=== PATIENT | female | born 1945 | race Caucasian/White ===

== ENCOUNTER 2024-05-07 15:41 | Emergency (ER) | payer MEDICARE, MEDICAID ==
[~2024-05-07] VITALS: Ht 152.4 cm; Wt 59.0 kg
[~2024-05-07 15:41] MED LIST: FLUO10CA25 PO; TRAM50TA3 PO
[2024-05-07 15:47] VITALS: BP 135/63; PULSE 81; TEMP 98.3; O2SAT 97
[2024-05-07] MEDS ORDERED: HYDR-4001 MT (17:06)
[2024-05-07] MEDS: HYDROCODONE/ACETAMINOPHEN 5/325MG TABLET PO STA (17:20)
[2024-05-07 17:23] VITALS: RESP 17
== END 2024-05-07 17:30 | disposition home or self-care (01) ==
LOC: ER 15:41
DX: S82.001A Unspecified fracture of right patella, initial encounter for closed fracture (principal); F32.A Depression, unspecified; Z98.890 Other specified postprocedural states; Z96.651 Presence of right artificial knee joint; W10.9XXA Fall (on) (from) unspecified stairs and steps, initial encounter; X58.XXXA Exposure to other specified factors, initial encounter; Y93.89 Activity, other specified; Y92.89 Other specified places as the place of occurrence of the external cause; Y99.8 Other external cause status
CPT/HCPCS: 73560; 99283

== ENCOUNTER 2024-06-28 12:32 | Emergency (ER) | payer MEDICARE, MEDICAID ==
[~2024-06-28] VITALS: Ht 152.4 cm; Wt 61.0 kg
[~2024-06-28 12:32] MED LIST changes: +HYDR-4001 MT
[2024-06-28 12:39] VITALS: BP 167/73; PULSE 111; RESP 16; TEMP 98.6; O2SAT 98
== END 2024-06-28 13:03 | disposition left against medical advice (07) ==
LOC: ER 12:32
DX: R07.9 Chest pain, unspecified (principal); Z53.21 Procedure and treatment not carried out due to patient leaving prior to being seen by health care provider
CPT/HCPCS: 93005

== ENCOUNTER 2025-02-23 11:56 | Emergency (ER) | payer MEDICARE, MEDICAID ==
[~2025-02-23] VITALS: Ht 157.5 cm; Wt 65.0 kg
[2025-02-23 11:58] VITALS: O2SAT 100
[2025-02-23] MEDS: MORPHINE SULFATE 4 MG/ML INJ (FOR IV/IM USE) IV ONE (12:30)
[2025-02-23 13:18] LABS: BASOPHILS % 0.4 % (0.0-2.0); EOSINOPHILS % 1.1 % (0.0-5.0); HEMATOCRIT. 34.7 % (36.0-48.0); HEMOGLOBIN. 11.9 g/dL (12.0-16.0); LYMPHOCYTES % 24.3 % (20.0-50.0); MEAN PLATELET VOLUME 8.8 fl (7.4-10.4); MONOCYTES % 8.2 % (2.0-8.0); NEUTROPHILS % 66.0 % (40.0-76.0); PLATELET 288 x1000/uL (130-400); RED BLOOD CELL COUNT 3.86 mill/uL (4.2-5.4); RED CELL DISTRIBUTION WIDTH 16.4 % (11.6-14.6)
[2025-02-23 13:40] LABS: CREATININE 0.5 mg/dL (0.6-1.0)
[2025-02-23 13:41] LABS: UREA NITROGEN BLOOD 14 mg/dL (9-23)
[2025-02-23] MEDS: SODIUM CHLORIDE 0.9% 1,000 ML IV ONE (15:04)
[2025-02-23] MEDS: ACETAMINOPHEN 325MG TABLET PO ONE (15:04)
[2025-02-23] MEDS: METOCLOPRAMIDE HCL 10MG/2ML VIAL IV ONE (15:04)
[2025-02-23 15:47] LABS: TROPONIN I HIGH SENSITIVITY 4 ng/L (3.0-34)
[2025-02-23 17:26] VITALS: BP 110/66; PULSE 90; RESP 15; TEMP 37; O2SAT 100
== END 2025-02-23 17:29 | disposition home or self-care (01) ==
LOC: EDBEDREQ 12:35 → ER 12:54
DX: R07.89 Other chest pain (principal); F32.A Depression, unspecified; F41.9 Anxiety disorder, unspecified; R51.9 Headache, unspecified; Z79.899 Other long term (current) drug therapy; Z98.890 Other specified postprocedural states
CPT/HCPCS: 99285; 96374; 70450; 71045; 96361; 96375; 80048; 85025; 84484; 36415; 93005; J2765; J2270; J7030